=== PATIENT | male | born 1950 | race Caucasian/White ===

== ENCOUNTER 2019-10-04 10:00 | Inpatient (IN) ==
[~2019-10-04 10:00] MED LIST: Dexamethasone IV 4 MG/ML VIAL 1 ml VIAL ONE; ERTApenem(*) 1 GM in NS 0.9% 50 ML 50 ML IVPB SCH; Famotidine IV 10 MG/ML 2 ml VIAL (20 mg) IV ONE; Ketamine HCL 50 mg/ml 10 ml VIAL (500 MG) ONE; Lactated Ringers 1000 ml BAG 1,000 ML IV SCH; Lidocaine 2% PF 5 ML VIAL ONE; Midazolam 5 mg/5 ml VIAL 1 mg/ml 5 ml VIAL (5 mg) ONE; Ondansetron 4 mg VIAL 2 MG/ML 2 ml VIAL ONE; Phenylephrine IV 10 MG/ML 1 ml VIAL ONE; Propofol 10 MG/ML 20 ML BTL ONE; Rocuronium 50 mg VIAL 10 mg/ml 5 ml VIAL (50 mg) ONE; fentaNYL 100 mcg/2 ml 50 MCG/ML VIAL ONE
[2019-10-04] MEDS ORDERED: Famotidine IV 10 MG/ML 2 ml VIAL (20 mg) ONE (10:33)
[2019-10-04] MEDS ORDERED: Heparin 5000 UNITS/ML VIAL(*) 1 ml vial ONE (10:33)
[2019-10-04] MEDS ORDERED: Bupivacaine 0.5% SDV PF 30ML VIAL ONE (11:09)
[2019-10-04 11:13] LABS: Hematocrit 27 % (42-52); Hemoglobin 8.8 g/dL (14.0-18.0); Mean Corpuscular HGB Conc 32 g/dL (31-36); Mean Corpuscular Hemoglobin 29 pg (27-31); Mean Corpuscular Volume 90 fL (80-94); Mean Platelet Volume 8.1 fL (7.4-10.4); Platelet Count 308 10^3/uL (150-450); Red Blood Count 3.02 10^6 /uL (4.18-5.48); Red Cell Distribution Width 15 % (10-15); White Blood Count 6.6 10^3/uL (3.5-10.8)
[2019-10-04] MEDS ORDERED: Metoprolol Tartrate 5 mg VIAL 5 ml VIAL (1 mg/ml) ONE (12:21)
[2019-10-04] MEDS ORDERED: fentaNYL 100 mcg/2 ml 50 MCG/ML VIAL ONE (13:24)
[2019-10-04] MEDS ORDERED: Rocuronium 50 mg VIAL 10 mg/ml 5 ml VIAL (50 mg) ONE (13:26)
[2019-10-04] MEDS ORDERED: Acetaminophen IV 1 GM/100ML 100 ML ONE (13:47)
[2019-10-04] MEDS ORDERED: Bacitracin OINTMENT TUBE ONE (14:09)
[2019-10-04] MEDS ORDERED: HYDROmorphone 1 MG/1 ML SYRINGE ONE (14:10)
[2019-10-04] MEDS ORDERED: Labetalol IV 5 MG/ML 20 ml VIAL ONE (14:23)
[2019-10-04] MEDS ORDERED: Ondansetron 4 mg VIAL 2 MG/ML 2 ml VIAL IV PRN (14:45)
[2019-10-04] MEDS ORDERED: fentaNYL 100 mcg/2 ml 50 MCG/ML VIAL IV PRN (14:45)
[2019-10-04] MEDS ORDERED: Naloxone 0.4 mg VIAL 0.4 mg/ml 1 ml VIAL IV PRN (14:45)
[2019-10-04] MEDS ORDERED: NS 0.9% 1000 ml BAG 400 ML IV SCH (16:45)
[2019-10-04] MEDS: NS 0.9% 1000 ml BAG 1,000 ML IV SCH (16:52)
[2019-10-04] MEDS: HYDROmorphone 1 MG/1 ML SYRINGE IV SLOW PU PRN ×2 (17:44→21:15)
[2019-10-05] MEDS: HYDROmorphone 1 MG/1 ML SYRINGE IV SLOW PU PRN ×4 (00:15→22:57)
[2019-10-05] MEDS: NS 0.9% 1000 ml BAG 1,000 ML IV SCH ×2 (02:47→15:34)
[2019-10-05] MEDS: Heparin 5000 UNITS/ML VIAL(*) 1 ml vial SUBCUT SCH ×2 (05:57→17:22)
[2019-10-05 06:16] LABS: ABS Lymphocytes 0.8 10^3/ul (1.0-4.8); ABS Monocytes 0.9 10^3/ul (0-0.8); Hematocrit 22 % (42-52); Hemoglobin 7.3 g/dL (14.0-18.0); Lymphocyte % 7.2 %; Mean Corpuscular HGB Conc 33 g/dL (31-36); Mean Corpuscular Hemoglobin 29 pg (27-31); Mean Corpuscular Volume 89 fL (80-94); Platelet Count 305 10^3/uL (150-450); Red Blood Count 2.47 10^6 /uL (4.18-5.48); Red Cell Distribution Width 14 % (10-15); White Blood Count 10.6 10^3/uL (3.5-10.8)
[2019-10-05 06:34] LABS: BUN/Creatinine Ratio 13.1 (8-20); Calcium 8.3 mg/dL (8.6-10.3); EGFR African American 83.2 (>60); EGFR Non-African American 68.7 (>60); Magnesium 1.7 mg/dL (1.9-2.7)
[2019-10-05] MEDS: Ondansetron 4 mg VIAL 2 MG/ML 2 ml VIAL IV PRN (08:24)
[2019-10-05] MEDS ORDERED: Magnesium Sulfate 2 gm BAG 2 GM/50 ML BAG IVPB ONE (08:31)
[2019-10-05 13:50] LABS: Hematocrit 22 % (42-52); Hemoglobin 7.4 g/dL (14.0-18.0)
[2019-10-06] MEDS: NS 0.9% 1000 ml BAG 1,000 ML IV SCH ×3 (01:13→22:06)
[2019-10-06 06:14] LABS: ABS Basophils 0.1 10^3/ul (0-0.2); ABS Eosinophils 0.1 10^3/ul (0-0.6); ABS Lymphocytes 1.1 10^3/ul (1.0-4.8); ABS Monocytes 0.8 10^3/ul (0-0.8); Eosinophil % 0.5 %; Hematocrit 25 % (42-52); Hemoglobin 8.2 g/dL (14.0-18.0); Mean Corpuscular HGB Conc 32 g/dL (31-36); Mean Corpuscular Hemoglobin 29 pg (27-31); Mean Corpuscular Volume 90 fL (80-94); Mean Platelet Volume 8.4 fL (7.4-10.4); Platelet Count 363 10^3/uL (150-450); Red Blood Count 2.82 10^6 /uL (4.18-5.48); Red Cell Distribution Width 15 % (10-15); White Blood Count 11.2 10^3/uL (3.5-10.8)
[2019-10-06 06:35] LABS: Anion Gap 5 mmol/L (2-11); BUN/Creatinine Ratio 16.7 (8-20); Blood Urea Nitrogen 19 mg/dL (6-24); CO2 Carbon Dioxide 26 mmol/L (22-32); Calcium 8.3 mg/dL (8.6-10.3); Chloride 111 mmol/L (101-111); EGFR African American 77.3 (>60); EGFR Non-African American 63.9 (>60); Glucose 102 mg/dL (70-100); Magnesium 2.1 mg/dL (1.9-2.7); Potassium 3.9 mmol/L (3.5-5.0); Sodium 142 mmol/L (135-145)
[2019-10-06] MEDS ORDERED: Senna TAB 8.6 mg TAB PO PRN (09:58)
[2019-10-06] MEDS ORDERED: Magnesium Hydroxide LIQ 30 ML UDC PO PRN (09:58)
[2019-10-06 10:32] LABS: % Iron Saturation 6 % (15-55); Iron < 20 ug/dL (50-212); Total Iron Binding Capacity 315 mcg/dL (250-450); Transferrin 225 mg/dL (203-362)
[2019-10-06 10:52] LABS: Ferritin 31.7 ng/mL (24-336)
[2019-10-06] MEDS: Polyethylene Glycol 3350 17 GM PACKET PO SCH (10:54)
[2019-10-06] MEDS ORDERED: Ferric Gluconate IV 125 MG in NS 0.9% 100 ml BAG 100 ML IVPB ONE (14:27)
[2019-10-06] MEDS: Ondansetron 4 mg VIAL 2 MG/ML 2 ml VIAL IV PRN (14:54)
[2019-10-06] MEDS: Cyanocobalamin INJ 1,000 MCG/ML VIAL 1 ML VIAL IM SCH (15:21)
[2019-10-06] MEDS ORDERED: Prochlorperazine 5 mg/ml 2 ml VIAL (10 mg) IV PRN (18:40)
[2019-10-07] MEDS: Ondansetron 4 mg VIAL 2 MG/ML 2 ml VIAL IV PRN (06:56)
[2019-10-07] MEDS: NS 0.9% 1000 ml BAG 1,000 ML IV SCH ×2 (08:08→18:17)
[2019-10-07] MEDS: HYDROmorphone 1 MG/1 ML SYRINGE IV SLOW PU PRN (08:18)
[2019-10-07] MEDS: Polyethylene Glycol 3350 17 GM PACKET PO SCH (09:01)
[2019-10-07 10:40] LABS: Calcium 8.2 mg/dL (8.6-10.3); EGFR African American 97.8 (>60); EGFR Non-African American 80.8 (>60); Potassium 3.8 mmol/L (3.5-5.0)
[2019-10-07] MEDS: Cyanocobalamin INJ 1,000 MCG/ML VIAL 1 ML VIAL IM SCH (10:56)
[2019-10-07] MEDS ORDERED: Metoprolol Tartrate 5 mg VIAL 5 ml VIAL (1 mg/ml) IV ONE (15:14)
[2019-10-07] MEDS ORDERED: Metoprolol Tartrate 5 mg VIAL 5 ml VIAL (1 mg/ml) IV PRN (18:15)
[2019-10-08] MEDS: NS 0.9% 1000 ml BAG 1,000 ML IV SCH ×3 (04:15→23:54)
[2019-10-08] MEDS: Polyethylene Glycol 3350 17 GM PACKET PO SCH (08:48)
[2019-10-08] MEDS: Cyanocobalamin INJ 1,000 MCG/ML VIAL 1 ML VIAL IM SCH (08:48)
[2019-10-08] MEDS: Enoxaparin 80 MG/0.8 ML SYR(*) SUBCUT SCH ×2 (10:39→22:25)
[2019-10-08] MEDS ORDERED: Metoprolol Tartrate 5 mg VIAL 5 ml VIAL (1 mg/ml) IV SCH (11:00)
[2019-10-08] MEDS: Metoprolol Tartrate 5 mg VIAL 5 ml VIAL (1 mg/ml) IV SCH ×3 (11:33→22:25)
[2019-10-09 05:29] LABS: ABS Basophils 0.1 10^3/ul (0-0.2); ABS Eosinophils 0.3 10^3/ul (0-0.6); ABS Monocytes 0.8 10^3/ul (0-0.8); Eosinophil % 2.8 %; Hematocrit 24 % (42-52); Hemoglobin 7.7 g/dL (14.0-18.0); Lymphocyte % 9.7 %; Mean Corpuscular HGB Conc 33 g/dL (31-36); Mean Corpuscular Hemoglobin 29 pg (27-31); Mean Corpuscular Volume 90 fL (80-94); Mean Platelet Volume 8.3 fL (7.4-10.4); Nucleated Red Blood Cells % 0.1; Platelet Count 352 10^3/uL (150-450); Red Blood Count 2.62 10^6 /uL (4.18-5.48); Red Cell Distribution Width 15 % (10-15); White Blood Count 10.2 10^3/uL (3.5-10.8)
[2019-10-09 05:49] LABS: BUN/Creatinine Ratio 20.9 (8-20); Calcium 8.2 mg/dL (8.6-10.3); EGFR African American 100.3 (>60); EGFR Non-African American 82.9 (>60); Magnesium 2.1 mg/dL (1.9-2.7); Potassium 3.6 mmol/L (3.5-5.0)
[2019-10-09] MEDS: Metoprolol Tartrate 5 mg VIAL 5 ml VIAL (1 mg/ml) IV SCH ×4 (05:50→20:29)
[2019-10-09] MEDS ORDERED: Metoprolol Tartrate 5 mg VIAL 5 ml VIAL (1 mg/ml) IV PRN (08:23)
[2019-10-09] MEDS: NS 0.9% 1000 ml BAG 1,000 ML IV SCH ×2 (09:48→19:52)
[2019-10-09] MEDS: Enoxaparin 80 MG/0.8 ML SYR(*) SUBCUT SCH ×2 (09:51→22:14)
[2019-10-09] MEDS: Cyanocobalamin INJ 1,000 MCG/ML VIAL 1 ML VIAL IM SCH (09:55)
[2019-10-10] MEDS: Metoprolol Tartrate 5 mg VIAL 5 ml VIAL (1 mg/ml) IV SCH ×4 (02:48→20:45)
[2019-10-10] MEDS: NS 0.9% 1000 ml BAG 1,000 ML IV SCH ×2 (06:07→15:32)
[2019-10-10] MEDS: Cyanocobalamin INJ 1,000 MCG/ML VIAL 1 ML VIAL IM SCH (09:37)
[2019-10-10] MEDS: Enoxaparin 80 MG/0.8 ML SYR(*) SUBCUT SCH (09:37)
[2019-10-11] MEDS: NS 0.9% 1000 ml BAG 1,000 ML IV SCH ×3 (02:08→23:23)
[2019-10-12 07:38] VITALS: BP 154/89
== END 2019-10-12 11:05 | disposition home or self-care (01) | DRG 330 ==
LOC: AA 10:00 → SSU 16:26
PROVIDERS: ADMIT Surgery; ATTEND Surgery

== ENCOUNTER 2019-11-02 23:57 | Inpatient (IN) ==
[2019-11-03 03:06] LABS: Urine Appearance Cloudy; Urine Bilirubin Negative (Negative); Urine Blood 1+ (Negative); Urine Color Yellow; Urine Glucose Negative (Negative); Urine Ketones Negative (Negative); Urine Nitrite Positive (Negative); Urine Protein Negative (Negative); Urine Specific Gravity 1.044 (1.010-1.030); Urine Urobilinogen Negative (Negative)
[2019-11-03 03:12] LABS: Urine Bacteria Absent (Absent); Urine Red Blood Cell 3+(>10/hpf) (Absent); Urine White Blood Cell 3+(>20/hpf) (Absent)
[2019-11-03 04:26] LABS: Albumin 3.3 g/dL (3.2-5.2); BUN/Creatinine Ratio 17.2 (8-20); Calcium 8.1 mg/dL (8.6-10.3); EGFR African American 105.6 (>60); EGFR Non-African American 87.3 (>60); Globulin 3.3 g/dL (2-4); Potassium 3.6 mmol/L (3.5-5.0); Total Bilirubin 0.9 mg/dL (0.2-1.0); Total Protein 6.6 g/dL (6.4-8.9)
[2019-11-03 04:27] LABS: Troponin I 0.01 ng/mL (<0.03)
[2019-11-03 04:28] LABS: ABS Basophils 0.1 10^3/ul (0-0.2); ABS Eosinophils 0.4 10^3/ul (0-0.6); ABS Lymphocytes 1.1 10^3/ul (1.0-4.8); ABS Monocytes 0.6 10^3/ul (0-0.8); Hematocrit 25 % (42-52); Hemoglobin 8.1 g/dL (14.0-18.0); Mean Corpuscular HGB Conc 33 g/dL (31-36); Mean Corpuscular Hemoglobin 29 pg (27-31); Mean Corpuscular Volume 88 fL (80-94); Mean Platelet Volume 8.7 fL (7.4-10.4); Platelet Count 360 10^3/uL (150-450); Red Blood Count 2.85 10^6 /uL (4.18-5.48); Red Cell Distribution Width 18 % (10-15)
[2019-11-03 04:29] LABS: Eosinophil % 6.1 %
[2019-11-03 04:30] LABS: Activated Partial Thrombo Time 35.8 seconds (26.0-38.0); INR 1.15 (0.82-1.09)
[2019-11-03 05:49] LABS: ABS Basophils 0.1 10^3/ul (0-0.2); ABS Eosinophils 0.4 10^3/ul (0-0.6); ABS Lymphocytes 1.1 10^3/ul (1.0-4.8); ABS Monocytes 0.6 10^3/ul (0-0.8); Hematocrit 24 % (42-52); Hemoglobin 7.9 g/dL (14.0-18.0); Mean Corpuscular HGB Conc 33 g/dL (31-36); Mean Corpuscular Hemoglobin 29 pg (27-31); Mean Corpuscular Volume 88 fL (80-94); Mean Platelet Volume 8.6 fL (7.4-10.4); Platelet Count 328 10^3/uL (150-450); Red Blood Count 2.75 10^6 /uL (4.18-5.48); Red Cell Distribution Width 17 % (10-15); White Blood Count 7.6 10^3/uL (3.5-10.8)
[2019-11-03 06:06] LABS: Albumin 3.1 g/dL (3.2-5.2); Albumin/Globulin Ratio 0.9 (1-3); BUN/Creatinine Ratio 14.5 (8-20); Calcium 7.9 mg/dL (8.6-10.3); EGFR African American 111.5 (>60); EGFR Non-African American 92.1 (>60); Globulin 3.3 g/dL (2-4); HDL Cholesterol 20.1 mg/dL; Potassium 3.2 mmol/L (3.5-5.0); Total Bilirubin 0.9 mg/dL (0.2-1.0); Total Protein 6.4 g/dL (6.4-8.9)
[2019-11-03 07:22] LABS: Activated Partial Thrombo Time 34.3 seconds (26.0-38.0); INR 1.16 (0.82-1.09)
[2019-11-03] MEDS: Potassium Chlor 20 meq TAB.ER PO SCH ×2 (10:26→20:26)
[2019-11-03] MEDS: Phenylephrine IV 50 MG in NS 0.9% 250 ml 245 ML IV SCH ×2 (10:57→23:47)
[2019-11-03] MEDS ORDERED: Polyethylene Glycol 3350 17 GM PACKET PO PRN (17:35)
[2019-11-03] MEDS: NS 0.9% 1000 ml BAG 1,000 ML IV SCH (17:57)
[2019-11-04] MEDS: NS 0.9% 1000 ml BAG 1,000 ML IV SCH (04:20)
[2019-11-04 04:46] LABS: Hematocrit 26 % (42-52); Hemoglobin 8.5 g/dL (14.0-18.0); Mean Corpuscular HGB Conc 32 g/dL (31-36); Mean Corpuscular Hemoglobin 28 pg (27-31); Mean Corpuscular Volume 89 fL (80-94); Red Blood Count 2.97 10^6 /uL (4.18-5.48); Red Cell Distribution Width 18 % (10-15); White Blood Count 11.9 10^3/uL (3.5-10.8)
[2019-11-04 04:47] LABS: ABS Basophils 0.1 10^3/ul (0-0.2); ABS Eosinophils 0.6 10^3/ul (0-0.6); ABS Monocytes 0.7 10^3/ul (0-0.8); Eosinophil % 4.7 %; Lymphocyte % 16.8 %; Nucleated Red Blood Cells % 0.1
[2019-11-04 04:48] LABS: Albumin 3.3 g/dL (3.2-5.2); Albumin/Globulin Ratio 0.9 (1-3); BUN/Creatinine Ratio 12.5 (8-20); Calcium 8.5 mg/dL (8.6-10.3); EGFR African American 116.3 (>60); EGFR Non-African American 96.1 (>60); Globulin 3.7 g/dL (2-4); Potassium 4.3 mmol/L (3.5-5.0)
[2019-11-04 08:42] LABS: Mean Platelet Volume 8.8 fL (7.4-10.4); Platelet Count 382 10^3/uL (150-450)
[2019-11-04] MEDS: Aspirin EC 81 mg TAB.EC (enteric coated) PO SCH (09:48)
[2019-11-04 10:05] LABS: ABS Basophils 0.1 10^3/ul (0-0.2); ABS Eosinophils 0.3 10^3/ul (0-0.6); ABS Lymphocytes 0.9 10^3/ul (1.0-4.8); ABS Monocytes 0.4 10^3/ul (0-0.8); Eosinophil % 3.7 %; Hematocrit 27 % (42-52); Hemoglobin 8.7 g/dL (14.0-18.0); Mean Corpuscular HGB Conc 32 g/dL (31-36); Mean Corpuscular Hemoglobin 28 pg (27-31); Mean Corpuscular Volume 88 fL (80-94); Mean Platelet Volume 8.6 fL (7.4-10.4); Platelet Count 408 10^3/uL (150-450); Red Blood Count 3.07 10^6 /uL (4.18-5.48); Red Cell Distribution Width 17 % (10-15); White Blood Count 7.9 10^3/uL (3.5-10.8)
[2019-11-04 10:19] LABS: EGFR African American 135.7 (>60); EGFR Non-African American 112.1 (>60)
[2019-11-04 10:21] LABS: Activated Partial Thrombo Time 37.2 seconds (26.0-38.0); INR 1.17 (0.82-1.09)
[2019-11-04] MEDS ORDERED: Magnesium Sulfate 2 gm BAG 2 GM/50 ML BAG IVPB ONE (11:10)
[2019-11-04] MEDS ORDERED: Magnesium Sulfate 2 gm BAG 2 GM/50 ML BAG ONE (11:18)
[2019-11-04] MEDS ORDERED: [UNRECOGNIZED DRUG - OTHER] FOLLOW UP SCH (13:00)
[2019-11-04] MEDS: Iron Sucrose 200 MG in NS 0.9% 100 ml BAG 100 ML IVPB SCH (13:12)
[2019-11-04] MEDS: Heparin 5000 UNITS/ML VIAL(*) 1 ml vial SUBCUT SCH ×2 (13:50→20:32)
[2019-11-04] MEDS ORDERED: Warfarin 5 mg TAB (*) PO ONE (17:00)
[2019-11-05] MEDS: Heparin 5000 UNITS/ML VIAL(*) 1 ml vial SUBCUT SCH ×2 (05:29→13:16)
[2019-11-05 06:19] LABS: Hematocrit 25 % (42-52); Hemoglobin 8.1 g/dL (14.0-18.0)
[2019-11-05 06:31] LABS: INR 1.17 (0.82-1.09)
[2019-11-05] MEDS: Aspirin EC 81 mg TAB.EC (enteric coated) PO SCH (08:46)
[2019-11-05] MEDS: Iron Sucrose 200 MG in NS 0.9% 100 ml BAG 100 ML IVPB SCH (08:47)
[2019-11-05] MEDS ORDERED: Aspirin EC 81 mg TAB.EC (enteric coated) PO SCH (09:00)
[2019-11-05] MEDS ORDERED: Warfarin 5 mg TAB (*) PO ONE (17:00)
[2019-11-06 04:58] LABS: Urine Appearance Cloudy; Urine Bilirubin Negative (Negative); Urine Blood 1+ (Negative); Urine Color Yellow; Urine Glucose Negative (Negative); Urine Ketones Negative (Negative); Urine Nitrite Positive (Negative); Urine Protein Negative (Negative); Urine Specific Gravity 1.005 (1.010-1.030); Urine Urobilinogen Negative (Negative)
[2019-11-06 05:05] LABS: Urine Bacteria 1+ (Absent); Urine Red Blood Cell 3+(>10/hpf) (Absent); Urine White Blood Cell 3+(>20/hpf) (Absent)
[2019-11-06 09:00] LABS: INR 1.4 (0.82-1.09)
[2019-11-06] MEDS: Iron Sucrose 200 MG in NS 0.9% 100 ml BAG 100 ML IVPB SCH (09:03)
[2019-11-06] MEDS: Aspirin EC 81 mg TAB.EC (enteric coated) PO SCH (09:04)
[2019-11-06 09:11] LABS: Albumin 3.4 g/dL (3.2-5.2); BUN/Creatinine Ratio 10.9 (8-20); Calcium 8.4 mg/dL (8.6-10.3); EGFR Non-African American 81.8 (>60); Globulin 3.4 g/dL (2-4); Potassium 3.9 mmol/L (3.5-5.0); Total Bilirubin 0.8 mg/dL (0.2-1.0); Total Protein 6.8 g/dL (6.4-8.9)
[2019-11-06 10:08] LABS: Hepatitis B Surface Antigen Nonreactive (Nonreactive)
[2019-11-06 10:26] LABS: Hepatitis C Antibody Negative (Negative)
[2019-11-06] MEDS ORDERED: cefTRIAXone 1 gm/50 mL NS BAG 1 GM/50 ML BAG IVPB SCH (11:00)
[2019-11-06] MEDS ORDERED: WARFARIN 6 MG PO ONE (17:00)
[2019-11-07 05:56] LABS: ABS Basophils 0.1 10^3/ul (0-0.2); ABS Eosinophils 0.4 10^3/ul (0-0.6); ABS Lymphocytes 1.1 10^3/ul (1.0-4.8); ABS Monocytes 0.9 10^3/ul (0-0.8); Eosinophil % 4.3 %; Hematocrit 29 % (42-52); Hemoglobin 9.2 g/dL (14.0-18.0); Mean Corpuscular HGB Conc 32 g/dL (31-36); Mean Corpuscular Hemoglobin 28 pg (27-31); Mean Corpuscular Volume 87 fL (80-94); Mean Platelet Volume 8.9 fL (7.4-10.4); Nucleated Red Blood Cells % 0.1; Platelet Count 392 10^3/uL (150-450); Red Blood Count 3.26 10^6 /uL (4.18-5.48); Red Cell Distribution Width 17 % (10-15); White Blood Count 9.1 10^3/uL (3.5-10.8)
[2019-11-07 05:57] LABS: INR 2.15 (0.82-1.09)
[2019-11-07 06:08] LABS: Albumin 3.4 g/dL (3.2-5.2); BUN/Creatinine Ratio 15.6 (8-20); Calcium 8.5 mg/dL (8.6-10.3); EGFR African American 101.5 (>60); EGFR Non-African American 83.9 (>60); Globulin 3.4 g/dL (2-4); Potassium 4.1 mmol/L (3.5-5.0); Total Bilirubin 0.7 mg/dL (0.2-1.0); Total Protein 6.8 g/dL (6.4-8.9)
[2019-11-07] MEDS: Aspirin EC 81 mg TAB.EC (enteric coated) PO SCH (07:32)
[2019-11-07 07:41] VITALS: BP 138/91
== END 2019-11-07 12:25 | disposition home or self-care (01) | DRG 62 ==
LOC: ED 11-03 02:42 → ICU 11-03 04:51 → MEDTELE 11-04 14:20 → MED 11-05 16:24
PROVIDERS: ADMIT Pediatrics; ATTEND Internal Medicine

== ENCOUNTER 2020-04-03 09:59 | Observation (INO) ==
[2020-04-03 11:47] LABS: Albumin 3.5 g/dL (3.2-5.2); Albumin/Globulin Ratio 1.1 (1-3); BUN/Creatinine Ratio 20.9 (8-20); Calcium 8.5 mg/dL (8.6-10.3); EGFR African American 106.7 (>60); EGFR Non-African American 88.2 (>60); Globulin 3.3 g/dL (2-4); Potassium 3.5 mmol/L (3.5-5.0); Total Bilirubin 0.5 mg/dL (0.2-1.0); Total Protein 6.8 g/dL (6.4-8.9)
[2020-04-03 11:48] LABS: ABS Basophils 0.1 10^3/ul (0-0.2); ABS Eosinophils 0.1 10^3/ul (0-0.6); ABS Lymphocytes 0.9 10^3/ul (1.0-4.8); ABS Monocytes 0.6 10^3/ul (0-0.8); Eosinophil % 1.5 %; Hematocrit 29 % (42-52); Hemoglobin 9.7 g/dL (14.0-18.0); Influenza A Molecular Negative (Negative); Influenza B Molecular Negative (Negative); Mean Corpuscular HGB Conc 34 g/dL (31-36); Mean Corpuscular Hemoglobin 37 pg (27-31); Mean Corpuscular Volume 109 fL (80-94); Mean Platelet Volume 8.6 fL (7.4-10.4); Platelet Count 217 10^3/uL (150-450); Red Blood Count 2.66 10^6 /uL (4.18-5.48); Red Cell Distribution Width 15 % (10-15); Troponin I 0.01 ng/mL (<0.03); White Blood Count 6.8 10^3/uL (3.5-10.8)
[2020-04-03 11:53] LABS: Activated Partial Thrombo Time 40.3 seconds (26.0-38.0); INR 1.72 (0.82-1.09)
[2020-04-03] MEDS ORDERED: Furosemide 20 mg/2 ml IV VIAL IV SLOW PU ONE (13:10)
[2020-04-03] MEDS ORDERED: Iohexol 350 (CONTRAST) 500 ML MDV IV ONE (14:22)
[2020-04-03 15:58] LABS: Urine Appearance Clear; Urine Bilirubin Negative (Negative); Urine Blood 1+ (Negative); Urine Color Yellow; Urine Glucose Negative (Negative); Urine Ketones Negative (Negative); Urine Nitrite Negative (Negative); Urine Protein Negative (Negative); Urine Specific Gravity 1.009 (1.010-1.030); Urine Urobilinogen Negative (Negative)
[2020-04-03 16:11] LABS: Urine Bacteria Absent (Absent); Urine Red Blood Cell Trace(0-2/hpf) (Absent); Urine White Blood Cell Trace(0-5/hpf) (Absent)
[2020-04-03] MEDS ORDERED: Warfarin DAILY REMINDER **NOTE FOLLOW UP SCH (17:00)
[2020-04-03] MEDS ORDERED: cefTRIAXone 1 gm/50 mL NS BAG 1 GM/50 ML BAG IVPB SCH (18:00)
[2020-04-03] MEDS ORDERED: Azithromycin 500 mg/250 ml NS 500 MG/250 ML BAG IVPB SCH (18:00)
[2020-04-04 06:39] LABS: ABS Basophils 0.1 10^3/ul (0-0.2); ABS Eosinophils 0.2 10^3/ul (0-0.6); ABS Monocytes 0.7 10^3/ul (0-0.8); Eosinophil % 2.6 %; Hematocrit 28 % (42-52); Hemoglobin 9.3 g/dL (14.0-18.0); Lymphocyte % 16.7 %; Mean Corpuscular HGB Conc 33 g/dL (31-36); Mean Corpuscular Hemoglobin 37 pg (27-31); Mean Corpuscular Volume 110 fL (80-94); Mean Platelet Volume 8.8 fL (7.4-10.4); Platelet Count 204 10^3/uL (150-450); Red Blood Count 2.53 10^6 /uL (4.18-5.48); Red Cell Distribution Width 15 % (10-15); White Blood Count 5.9 10^3/uL (3.5-10.8)
[2020-04-04 06:45] LABS: INR 1.88 (0.82-1.09)
[2020-04-04 06:59] LABS: Albumin 3.3 g/dL (3.2-5.2); Albumin/Globulin Ratio 1.1 (1-3); BUN/Creatinine Ratio 19.3 (8-20); Calcium 8.6 mg/dL (8.6-10.3); EGFR African American 103.9 (>60); EGFR Non-African American 85.9 (>60); Potassium 3.8 mmol/L (3.5-5.0); Total Bilirubin 0.3 mg/dL (0.2-1.0); Total Protein 6.3 g/dL (6.4-8.9)
[2020-04-04] MEDS ORDERED: Potassium Chlor 20 meq TAB.ER PO SCH (09:00)
[2020-04-04 12:09] VITALS: BP 142/92
== END 2020-04-04 15:15 | disposition home or self-care (01) ==
LOC: ED 09:59 → MED 09:59
PROVIDERS: ADMIT Pediatrics; ATTEND Internal Medicine Hematology & Oncology

== ENCOUNTER 2021-08-13 10:38 | Inpatient (IN) ==
[2021-08-13 12:28] LABS: ABS Lymphocytes 0.6 10^3/ul (1.0-4.8); ABS Monocytes 0.7 10^3/ul (0-0.8); ABS Neutrophils 3.6 10^3/ul (1.5-7.7); Eosinophil % 0.3 %; Hematocrit 37 % (42-52); Hemoglobin 12.6 g/dL (14.0-18.0); Lymphocyte % 11.3 %; Mean Corpuscular HGB Conc 34 g/dL (31-36); Mean Corpuscular Hemoglobin 30 pg (27-31); Mean Corpuscular Volume 90 fL (80-94); Mean Platelet Volume 8.2 fL (7.4-10.4); Platelet Count 216 10^3/uL (150-450); Red Blood Count 4.14 10^6 /uL (4.18-5.48); Red Cell Distribution Width 14 % (10-15)
[2021-08-13 12:56] LABS: Influenza A Molecular Negative (Negative); Influenza B Molecular Negative (Negative)
[2021-08-13 13:24] LABS: ALT 169 U/L (7-52); Albumin 3.9 g/dL (3.2-5.2); Albumin/Globulin Ratio 1.3 (1-3); Alkaline Phosphatase 442 U/L (35-149); Blood Urea Nitrogen 29 mg/dL (6-24); CO2 Carbon Dioxide 25 mmol/L (22-32); Calcium 8.7 mg/dL (8.6-10.3); Chloride 105 mmol/L (101-111); Globulin 2.9 g/dL (2-4); Glucose 99 mg/dL (70-100); Sodium 138 mmol/L (135-145); Total Protein 6.8 g/dL (6.4-8.9); eGFR CKD-EPI 63.2 (>60)
[2021-08-13 13:43] LABS: Anion Gap 8 mmol/L (2-11)
[2021-08-13] MEDS ORDERED: Iohexol 300 (CONTRAST) 10 ML SDV IV ONE (15:40)
[2021-08-13 15:42] LABS: Direct Bilirubin 4.8 mg/dL (0.03-0.18); Potassium Redraw 3.9 mmol/L (3.5-5.0)
[2021-08-13] MEDS ORDERED: Ondansetron 4 mg VIAL 2 MG/ML 2 ml VIAL IV PRN (17:45)
[2021-08-13] MEDS ORDERED: Heparin 5000 UNITS/ML 1 mL VIAL SUBCUT ONE (17:48)
[2021-08-13] MEDS ORDERED: Phytonadione IV (Adult) 10 MG in NS 0.9% 50 ML 50 ML IV ONE (17:59)
[2021-08-13] MEDS: NS 0.9% 1000 ml BAG 1,000 ML IV SCH (23:09)
[2021-08-14 00:37] LABS: INR 1.74 (0.86-1.15)
[2021-08-14 06:29] LABS: ABS Lymphocytes 0.7 10^3/ul (1.0-4.8); ABS Monocytes 0.5 10^3/ul (0-0.8); ABS Neutrophils 2.1 10^3/ul (1.5-7.7); Eosinophil % 1.3 %; Hematocrit 34 % (42-52); Hemoglobin 11.4 g/dL (14.0-18.0); Lymphocyte % 20.7 %; Mean Corpuscular HGB Conc 34 g/dL (31-36); Mean Corpuscular Hemoglobin 31 pg (27-31); Mean Corpuscular Volume 91 fL (80-94); Mean Platelet Volume 8.4 fL (7.4-10.4); Nucleated Red Blood Cells % 0.2; Platelet Count 179 10^3/uL (150-450); Red Blood Count 3.72 10^6 /uL (4.18-5.48); Red Cell Distribution Width 15 % (10-15); White Blood Count 3.4 10^3/uL (3.5-10.8)
[2021-08-14 06:45] LABS: INR 1.28 (0.86-1.15)
[2021-08-14 06:52] LABS: Albumin 3.3 g/dL (3.2-5.2); Albumin/Globulin Ratio 1.2 (1-3); Calcium 8.2 mg/dL (8.6-10.3); Direct Bilirubin 6.3 mg/dL (0.03-0.18); Globulin 2.7 g/dL (2-4); Indirect Bilirubin 3.2 mg/dL (0.3-1.0); Total Bilirubin 9.5 mg/dL (0.2-1.0); eGFR CKD-EPI 67.1 (>60)
[2021-08-14] MEDS: NS 0.9% 1000 ml BAG 1,000 ML IV SCH (09:17)
[2021-08-14] MEDS ORDERED: Warfarin per PHARMACY **NOTE FOLLOW UP SCH (10:00)
[2021-08-14] MEDS: Lactated Ringers 1000 ml BAG 1,000 ML IV SCH ×2 (15:12→20:03)
[2021-08-14] MEDS ORDERED: Etomidate 20 mg/10 ml 2 MG/ML 10 ml VIAL ONE (16:33)
[2021-08-14] MEDS ORDERED: Ondansetron 4 mg VIAL 2 MG/ML 2 ml VIAL ONE (16:35)
[2021-08-14] MEDS ORDERED: EPHEDrine (Pressors) 50 MG/ML VIAL ONE (16:35)
[2021-08-14] MEDS ORDERED: Metoclopramide 5 MG/ML VIAL (10 mg) ONE (16:35)
[2021-08-14] MEDS ORDERED: Dexamethasone IV 4 MG/ML VIAL 1 ml VIAL ONE (16:35)
[2021-08-14] MEDS ORDERED: fentaNYL 100 mcg/2 ml 50 MCG/ML VIAL ONE (18:04)
[2021-08-14] MEDS: Warfarin DAILY REMINDER **NOTE FOLLOW UP SCH (21:59)
[2021-08-15] MEDS ORDERED: ZOSYN 3.375 GM x ONE DOSE over 30 miuntes IV
[2021-08-15] MEDS: ZOSYN 3.375 GM Q8H per EXTENDED INFUSION IV SCH ×4 (00:23→23:11)
[2021-08-15 04:55] LABS: Hematocrit 35 % (42-52); Hemoglobin 11.9 g/dL (14.0-18.0); Mean Corpuscular HGB Conc 34 g/dL (31-36); Mean Corpuscular Hemoglobin 31 pg (27-31); Mean Corpuscular Volume 92 fL (80-94); Mean Platelet Volume 8.6 fL (7.4-10.4); Platelet Count 193 10^3/uL (150-450); Red Blood Count 3.83 10^6 /uL (4.18-5.48); Red Cell Distribution Width 15 % (10-15); White Blood Count 5.1 10^3/uL (3.5-10.8)
[2021-08-15 05:11] LABS: Albumin 3.2 g/dL (3.2-5.2); Calcium 8.1 mg/dL (8.6-10.3); Globulin 2.6 g/dL (2-4); Magnesium 1.7 mg/dL (1.9-2.7); Potassium 4.3 mmol/L (3.5-5.0); Total Protein 5.8 g/dL (6.4-8.9)
[2021-08-15 05:12] LABS: Albumin/Globulin Ratio 1.2 (1-3); Total Bilirubin 5.9 mg/dL (0.2-1.0)
[2021-08-15] MEDS ORDERED: Magnesium Sulfate IV 3 GM in NS 0.9% 100 ml BAG 100 ML IVPB ONE (07:01)
[2021-08-15] MEDS ORDERED: Magnesium Sulfate 2 GM IV (Premix) IVPB ONE (08:30)
[2021-08-15] MEDS ORDERED: Magnesium Sulfate 1 GM IV 1 GM/100 ML BAG IV ONE (09:30)
[2021-08-15 12:48] LABS: INR 1.39 (0.86-1.15)
[2021-08-15] MEDS: Warfarin DAILY REMINDER **NOTE FOLLOW UP SCH (16:29)
[2021-08-16 06:46] LABS: Hematocrit 31 % (42-52); Hemoglobin 10.7 g/dL (14.0-18.0); Mean Corpuscular HGB Conc 34 g/dL (31-36); Mean Corpuscular Hemoglobin 31 pg (27-31); Mean Corpuscular Volume 92 fL (80-94); Mean Platelet Volume 8.7 fL (7.4-10.4); Platelet Count 206 10^3/uL (150-450); Red Blood Count 3.41 10^6 /uL (4.18-5.48); Red Cell Distribution Width 15 % (10-15); White Blood Count 6.1 10^3/uL (3.5-10.8)
[2021-08-16 07:07] LABS: Albumin 2.9 g/dL (3.2-5.2); Albumin/Globulin Ratio 1.2 (1-3); Calcium 7.7 mg/dL (8.6-10.3); Globulin 2.4 g/dL (2-4); Total Bilirubin 2.6 mg/dL (0.2-1.0); Total Protein 5.3 g/dL (6.4-8.9)
[2021-08-16] MEDS: ZOSYN 3.375 GM Q8H per EXTENDED INFUSION IV SCH ×2 (08:46→08:54)
[2021-08-16 12:24] VITALS: BP 136/77
== END 2021-08-16 13:06 | disposition home or self-care (01) | DRG 444 ==
LOC: ED 10:38 → SUATTDRO 17:45 → EDHOLD 17:45 → MED 21:42
PROVIDERS: ADMIT Internal Medicine; ATTEND Internal Medicine